=== PATIENT | female | born 1995 | race African-American/Black ===

== ENCOUNTER 2020-11-02 01:38 | Emergency (ER) | payer MEDICAID ==
[~2020-11-02] VITALS: Ht 172.7 cm; Wt 96.0 kg
[~2020-11-02 01:38] MED LIST: IBUP-22
[2020-11-02 03:00] VITALS: BP 134/95
[2020-11-02] MEDS ORDERED: KETOROLAC 60MG/2ML VIAL IM ONE (03:00)
[2020-11-02] MEDS ORDERED: NAPR-681 MT (03:40)
== END 2020-11-02 04:00 | disposition home or self-care (01) ==
LOC: ER 01:38
DX: S16.1XXA Strain of muscle, fascia and tendon at neck level, initial encounter (principal); M79.18 Myalgia, other site; V49.50XA Passenger injured in collision with unspecified motor vehicles in traffic accident, initial encounter; Y93.9 Activity, unspecified; Y92.410 Unspecified street and highway as the place of occurrence of the external cause
CPT/HCPCS: 81025; 96372; 99283; J1885

== ENCOUNTER 2021-03-11 10:37 | Emergency (ER) | payer MEDICAID ==
[~2021-03-11] VITALS: Ht 172.7 cm; Wt 86.0 kg
[~2021-03-11 10:37] MED LIST changes: +NAPR-681 MT
[2021-03-11] MEDS ORDERED: ACETAMINOPHEN 325MG TABLET PO ONE (11:00)
[2021-03-11] MEDS ORDERED: BACITRACIN ZINC OINT UDPKT TOP ONE ×2 (11:00→11:15)
[2021-03-11] MEDS ORDERED: LIDOCAINE HCL/EPINEPHRINE 1%-EPI 1:100,000 20 ML VIAL INFIL ONE (11:00)
[2021-03-11] MEDS ORDERED: HYDROCODONE/ACETAMINOPHEN 5/325MG TABLET PO ONE (12:30)
[2021-03-11] MEDS ORDERED: ACET-2708 MT (14:29)
[2021-03-11] MEDS ORDERED: CEPH500T MT (14:29)
[2021-03-11] MEDS ORDERED: IBUP-2029 MT (14:29)
[2021-03-11 14:30] VITALS: BP 128/78
[2021-03-11] MEDS ORDERED: HYDR-4346 MT (14:43)
== END 2021-03-11 14:57 | disposition home or self-care (01) ==
LOC: ER 10:37
DX: S51.811A Laceration without foreign body of right forearm, initial encounter (principal); Z79.899 Other long term (current) drug therapy; W01.0XXA Fall on same level from slipping, tripping and stumbling without subsequent striking against object, initial encounter; Y93.01 Activity, walking, marching and hiking; Y92.89 Other specified places as the place of occurrence of the external cause; Y99.8 Other external cause status; Z91.012 Allergy to eggs
CPT/HCPCS: 12005; 73090; 81025; 99285; A4217; J3490; Z7610

== ENCOUNTER 2021-11-03 00:41 | Emergency (ER) | payer MEDICAID, OTHER ==
[~2021-11-03] VITALS: Ht 172.7 cm; Wt 88.0 kg
[~2021-11-03 00:41] MED LIST changes: +ACET-2708 MT; +CEPH500T MT; +HYDR-4346 MT; +IBUP-2029 MT
[2021-11-03 01:00] VITALS: BP 96/78
== END 2021-11-03 04:45 | disposition home or self-care (01) ==
LOC: ER 00:41
DX: H72.91 Unspecified perforation of tympanic membrane, right ear (principal); Z91.012 Allergy to eggs; Z91.018 Allergy to other foods
CPT/HCPCS: 99281

== ENCOUNTER 2025-01-20 09:22 | Emergency (ER) | payer MEDICAID ==
[~2025-01-20] VITALS: Ht 172.7 cm; Wt 90.7 kg
[2025-01-20 09:40] VITALS: TEMP 36.6; O2SAT 99
[2025-01-20 09:48] LABS: CLARITY URINE CLEAR (CLEAR); COLOR URINE YELLOW (YELLOW); GLUCOSE URINE NEGATIVE (NEGATIVE); KETONES URINE NEGATIVE (NEGATIVE); LEUKOCYTE ESTERASE URINE NEGATIVE (NEGATIVE); NITRITE URINE NEGATIVE (NEGATIVE); OCCULT BLOOD URINE TRACE (NEGATIVE); PH URINE 6.5 (4.5-8.0); PROTEIN URINE NEGATIVE (NEGATIVE); SPECIFIC GRAVITY URINE 1.002 (1.005-1.030); UROBILINOGEN URINE 0.2 E.U./dL (0.2-1.0)
[2025-01-20 10:07] LABS: BASOPHILS % 0.7 % (0.0-2.0); EOSINOPHILS % 1.7 % (0.0-5.0); HEMATOCRIT. 38.9 % (36.0-48.0); HEMOGLOBIN. 12.9 g/dL (12.0-16.0); LYMPHOCYTES % 31.2 % (20.0-50.0); MEAN CORPUSCULAR HEMOGLOBIN 28.2 pg (28.0-32.0); MEAN CORPUSCULAR HGB CONC 33.1 g/dL (31.0-37.0); MEAN CORPUSCULAR VOLUME 85.4 fL (81.0-99.0); MEAN PLATELET VOLUME 7.5 fl (7.4-10.4); NEUTROPHILS % 58.4 % (40.0-76.0); PLATELET 261 x1000/uL (130-400); RED BLOOD CELL COUNT 4.55 mill/uL (4.2-5.4); RED CELL DISTRIBUTION WIDTH 14.1 % (11.6-14.6); WHITE BLOOD COUNT 8.6 x1000/uL (4.5-11.0)
[2025-01-20 10:13] LABS: CHLORIDE 105 mEq/L (98-107); POTASSIUM 3.8 mEq/L (3.5-5.1); SODIUM 138 mEq/L (136-145)
[2025-01-20 10:15] LABS: CALCIUM 8.9 mg/dL (8.7-10.4); CARBON DIOXIDE 26 mEq/L (21-32)
[2025-01-20 10:20] LABS: CREATININE 0.8 mg/dL (0.6-1.0); GLUCOSE 81 mg/dL (70-105); UREA NITROGEN BLOOD 8 mg/dL (9-23)
[2025-01-20 10:22] LABS: ALANINE AMINOTRANSFERASE 14 IU/L (10-49); ALBUMIN 3.9 g/dL (3.2-4.8); ASPARTATE AMINOTRANSFERASE 20 IU/L (<34); BILIRUBIN DIRECT 0.2 mg/dL (<=3.0); BILIRUBIN TOTAL 0.8 mg/dL (0.1-1.0); PROTEIN TOTAL 6.9 g/dL (6.0-8.3)
[2025-01-20 10:41] LABS: RBC URINE 0-2 /hpf (0-2); SQUAMOUS EPITHELIAL CELL URINE 2+ /lpf (RARE/1+); WBC URINE 0-2 /hpf (0-2)
[2025-01-20 10:42] LABS: BACTERIA URINE TRACE; YEAST URINE NONE SEEN
[2025-01-20] MEDS ORDERED: CEFP200T13 MT (10:50)
[2025-01-20 10:57] VITALS: BP 134/65; PULSE 80; RESP 19; O2SAT 100
== END 2025-01-20 11:02 | disposition home or self-care (01) ==
LOC: ER 09:22
DX: N12 Tubulo-interstitial nephritis, not specified as acute or chronic (principal); R03.0 Elevated blood-pressure reading, without diagnosis of hypertension; Z79.1 Long term (current) use of non-steroidal anti-inflammatories (NSAID); Z79.899 Other long term (current) drug therapy
CPT/HCPCS: 80076; 80048; 81003; 81025; 83690; 85025; 86850; 86900; 86901; 36415; 74176; 99284; Z7610 ×3